=== PATIENT | male | born 1980 | race African-American/Black ===

== ENCOUNTER 2018-08-20 10:18 | Emergency (ER) | payer OTHER ==
[~2018-08-20] VITALS: Ht 172.7 cm; Wt 68.0 kg
[2018-08-20] MEDS ORDERED: KETOROLAC 30MG/ML VIAL IV STA (10:35)
[2018-08-20] MEDS ORDERED: SODIUM CHLORIDE 0.9% 1,000 ML IV ONE (10:35)
[2018-08-20] MEDS ORDERED: ACETAMINOPHEN 325MG TABLET PO STA (10:35)
[2018-08-20 10:52] LABS: HEMATOCRIT. 36.5 % (42.0-52.0); HEMOGLOBIN. 12.2 g/dL (14.0-18.0); MEAN CORPUSCULAR VOLUME 77.8 fL (80.0-94.0); MEAN PLATELET VOLUME 9.1 fl (7.4-10.4); PLATELET 307 x1000/uL (130-400); RED BLOOD CELL COUNT 4.69 mill/uL (4.7-6.1); RED CELL DISTRIBUTION WIDTH 14.7 % (11.6-14.6)
[2018-08-20 10:55] LABS: CHLORIDE 107 mEq/L (98-107)
[2018-08-20] MEDS ORDERED: AZITHROMYCIN 500 MG in DEXT 5% WATER 250 ML IV SCH (11:00)
[2018-08-20] MEDS ORDERED: CEFTRIAXONE 1 G PREMIX 50 ML IV ONE (11:00)
[2018-08-20 11:09] LABS: PLATELET ESTIMATE NORMAL
[2018-08-20 12:47] VITALS: BP 123/80
== END 2018-08-20 12:57 | disposition home or self-care (01) ==
LOC: ER 10:18
DX: S20.211A Contusion of right front wall of thorax, initial encounter (principal); J18.9 Pneumonia, unspecified organism; F12.10 Cannabis abuse, uncomplicated; W18.39XA Other fall on same level, initial encounter; Y93.89 Activity, other specified; Y92.89 Other specified places as the place of occurrence of the external cause; Y99.8 Other external cause status
CPT/HCPCS: 36415; 71045; 80053; 85025; 96365; 96368; 96375; 99284; J0456; J0696; J1885; J7030; J7060; Z7610